=== PATIENT | male | born 1995 | race Caucasian/White ===

== ENCOUNTER 2022-11-08 11:16 | Emergency (ER) | payer OTHER ==
[~2022-11-08] VITALS: Ht 185.4 cm; Wt 96.4 kg
[2022-11-08] MEDS ORDERED: CYCL-448 PO (14:10)
[2022-11-08 14:29] VITALS: BP 122/80
== END 2022-11-08 14:38 | disposition home or self-care (01) ==
LOC: EMS 11:27
DX: S13.4XXA Sprain of ligaments of cervical spine, initial encounter (principal); S23.3XXA Sprain of ligaments of thoracic spine, initial encounter; Z98.890 Other specified postprocedural states; V89.2XXA Person injured in unspecified motor-vehicle accident, traffic, initial encounter; Y93.89 Activity, other specified; Y92.89 Other specified places as the place of occurrence of the external cause; Y99.8 Other external cause status
CPT/HCPCS: 72040; 72072; 99284; Z7502